=== PATIENT | female | born 1955 | race African-American/Black ===

== ENCOUNTER 2020-12-25 19:50 | Emergency (ER) | payer BC ==
[~2020-12-25] VITALS: Ht 172.7 cm; Wt 99.8 kg
[2020-12-25 20:04] VITALS: BP_SYST 163
[2020-12-25 21:39] LABS: BASOPHILS # (AUTO) 0.1 K/uL (0.0-0.2); EOSINOPHILS # (AUTO) 0.1 K/uL (0.0-0.4); EOSINOPHILS % (AUTO) 0.9 % (0.0-4.0); HEMATOCRIT 36.2 % (36-48); HEMOGLOBIN 11.6 g/dL (12.0-16.0); LYMPHOCYTES # (AUTO) 2.2 K/uL (1.0-5.5); LYMPHOCYTES % (AUTO) 29.8 % (20.5-51.5); MEAN CORPUSCULAR HEMOGLOBIN 27 pg (27-31); MEAN CORPUSCULAR HGB CONC 32 % (32-36); MEAN CORPUSCULAR VOLUME 84 fL (79.0-98.0); MONOCYTES # (AUTO) 0.9 K/uL (0.0-1.0); MONOCYTES % (AUTO) 12.5 % (1.7-9.3); NEUTROPHILS % (AUTO) 55.8 % (40.0-70.0); PLATELET COUNT (AUTO) 314 K/uL (130-430); RED BLOOD CELL COUNT(AUTO) 4.29 MIL/uL (4.2-6.2); RED CELL DISTRIBUTION WIDTH 14.4 % (9.0-15.0); WHITE BLOOD COUNT (AUTO) 7.2 K/uL (4.8-10.8)
[2020-12-25 21:50] LABS: CALCIUM 8.9 mg/dL (8.4-11.0); CREATININE 1.08 mg/dL (0.55-1.30); POTASSIUM 3.2 mmol/L (3.5-5.1)
[2020-12-25 21:54] LABS: INR 0.9 (0.8-1.2)
[2020-12-25] MEDS ORDERED: POTASSIUM CHLORIDE 20 MEQ TAB.PRT.SR PO ONE (22:30)
[2020-12-25] MEDS ORDERED: NACL 0.9% 1,000 ML IV ONE (22:30)
[2020-12-25] MEDS ORDERED: IOHEXOL 350 mgI/mL, 150 ML INFUS..BTL IV ONE (23:01)
[2020-12-26] MEDS ORDERED: VANCOMYCIN HCL 1,000 MG in NS 250 ML IV ONE (00:30)
[2020-12-26] MEDS ORDERED: VANCOMYCIN HCL 1000 MG/VIAL IV ONE (00:33)
[2020-12-26] MEDS ORDERED: CEPH250C PO (00:58)
[2020-12-26 03:22] VITALS: BP_SYST 144
== END 2020-12-26 03:22 | disposition home or self-care (01) ==
LOC: SED 19:50
DX: L03.116 Cellulitis of left lower limb (principal)
CPT/HCPCS: 36415; 71275; 76376; 80048; 85025; 85379; 85610; 85730; 87040; 93005; 93971; 96361; 96365; 96366; 99285; J3370; J7030; Q9967